=== PATIENT | female | born 1930 | race Two or more races ===

== ENCOUNTER 2019-07-22 13:00 | Emergency (ER) | payer OTHER ==
[~2019-07-22] VITALS: Ht 157.5 cm; Wt 59.0 kg
[2019-07-22] MEDS ORDERED: ZOCOR20 MG PO (13:21)
[2019-07-22] MEDS ORDERED: METFORMIN HCL500 M3 PO (13:21)
[2019-07-22] MEDS ORDERED: COZAAR100 MG PO (13:21)
== END 2019-07-22 18:51 | disposition home or self-care (01) ==
LOC: ER 13:00
DX: L03.115 Cellulitis of right lower limb (principal)